=== PATIENT | male | born 1995 | race African-American/Black ===

== ENCOUNTER 2021-10-27 10:54 | Emergency (ER) | payer MEDICAID ==
[~2021-10-27] VITALS: Ht 172.7 cm; Wt 75.0 kg
[2021-10-27 11:10] VITALS: BP 129/77
== END 2021-10-27 15:08 | disposition left against medical advice (07) ==
LOC: ER 10:54
DX: R10.30 Lower abdominal pain, unspecified (principal)
CPT/HCPCS: 99281